=== PATIENT | female | born 1995 | race Caucasian/White ===

== ENCOUNTER 2018-01-16 01:15 | Observation (INO) | payer MEDICAID ==
[~2018-01-16] VITALS: Ht 162.6 cm; Wt 51.7 kg
[2018-01-16] MEDS ORDERED: NALBUPHINE 10 MG/ML AMP IVP PRN (01:55)
[2018-01-16] MEDS ORDERED: LACTATED RINGERS 1,000 ML IV SCH (01:55)
[2018-01-16] MEDS ORDERED: NALBUPHINE HYDROCHLORIDE 10 MG/ML VIAL ONE (02:21)
[2018-01-16 06:33] VITALS: BP 114/67
== END 2018-01-16 08:15 | disposition home or self-care (01) ==
LOC: MLD 01:15 → UNDODISOB 18:02
PROVIDERS: ADMIT Obstetrics & Gynecology; ATTEND Obstetrics & Gynecology
DX: O62.9 Abnormality of forces of labor, unspecified (principal); Z3A.28 28 weeks gestation of pregnancy
CPT/HCPCS: 36415; 76805; 96361; 96374; G0378; J2300; J7120; Q0092

== ENCOUNTER 2018-01-16 09:15 | Observation (INO) | payer MEDICAID | END 2018-01-16 10:47 | disposition home or self-care (01) | LOC: MLD 09:15 → UNDODISOB 18:00 | PROVIDERS: ADMIT Obstetrics & Gynecology; ATTEND Obstetrics & Gynecology | DX: O62.9 Abnormality of forces of labor, unspecified (principal); Z3A.00 Weeks of gestation of pregnancy not specified | CPT/HCPCS: 59025; G0378; J7120 ==

== ENCOUNTER 2019-06-02 23:50 | Emergency (ER) | payer MEDICAID ==
[~2019-06-02] VITALS: Ht 162.6 cm; Wt 44.5 kg
[2019-06-03 00:02] VITALS: BP 109/60
--- NOTE | 2019-06-03 00:02 | NUR ---
TO BED # 09 AMBULATORY
--- NOTE | 2019-06-03 00:10 | NUR ---
23 Y/O FEMALE PRESENTS TO ED, C/O VAGINAL BLEEDING. PT STATES, BLEEDING OCCURED YESTERDAY AROUND 1999, BRIGHT RED BLOOD, INTERMITTENT. PT IS 7 WEEKS , HAD ULTRASOUND LAST TUESDAY. PER REPORT GIVEN TO PT, FETUS IS HEALTHY AND NO ABNORMALITIES NOTED. PT DOES NOT HAVE ANY ABDOMINAL PAIN/CRAMPING. ABDOMEN IS SOFT TO TOUCH, ACTIVE BOWEL SOUNDS ON ALL QUADRANTS. PT HAS NO MEDICAL HX. PT VSS. DR FUNK AWARE. WILL CONTINUE TO MONITOR.
--- NOTE | 2019-06-03 00:13 | NUR ---
Dr. Lane examining patient.
[2019-06-03 00:55] LABS: BASOPHILS # (AUTO) 0.1 K/uL (0.00-0.22); BASOPHILS % (AUTO) 0.8 % (0.0-2.0); EOSINOPHILS # (AUTO) 0.1 K/uL (0-0.4); EOSINOPHILS % (AUTO) 1.4 % (0.0-4.0); HEMATOCRIT 34.3 % (36-48); LYMPHOCYTES # (AUTO) 1.9 K/uL (2.5-16.5); MEAN CORPUSCULAR HEMOGLOBIN 25 pg (27-31); MEAN CORPUSCULAR HGB CONC 32 g/dL (33-37); MONOCYTES # (AUTO) 0.5 K/uL (0.8-1.0); MONOCYTES % (AUTO) 6.5 % (1.7-9.3); NEUTROPHILS # (AUTO) 4.7 K/uL (1.8-7.7); NEUTROPHILS % (AUTO) 65.3 % (42.2-75.2); PLATELET COUNT (AUTO) 208 K/uL (140-450); RED BLOOD CELL COUNT(AUTO) 4.35 MIL/uL (4.20-5.40); RED CELL DISTRIBUTION WIDTH 17.9 % (11.6-13.7); WHITE BLOOD COUNT (AUTO) 7.2 K/uL (4.8-10.8)
--- NOTE | 2019-06-03 00:58 | NUR ---
Ultrasound at bedside.
[2019-06-03 01:08] LABS: APPEARANCE,URINE CLEAR (CLEAR); BILIRUBIN,URINE NEGATIVE (NEGATIVE); BLOOD, URINE NEGATIVE (NEGATIVE); COLOR,URINE YELLOW (YELLOW); LEUKOCYTE ESTERASE ,URINE NEGATIVE (NEGATIVE); NITRITE, URINE NEGATIVE (NEGATIVE); UGLUCOSE NEGATIVE (NEGATIVE)
[2019-06-03 01:17] LABS: ALBUMIN 3.4 g/dL (3.4-5.0); ANION GAP 13.7 (8-16); CARBON DIOXIDE 27.8 mmol/L (21-32); CREATININE 0.6 mg/dL (0.6-1.3); POTASSIUM 3.5 mmol/L (3.5-5.1); TOTAL BILIRUBIN 0.2 mg/dL (0.0-1.0)
--- NOTE | 2019-06-03 01:20 | NUR ---
PT AWAKE, LAYING ON BED. BOYFRIEND AT BEDSIDE. PT STATES SHE DOES NOT HAVE ANY VAGINAL BLEEDING. PT VSS. DR FUNK AWARE. WILL CONTINUE TO MONITOR.
[2019-06-03 01:24] LABS: RBC,URINE 0-5 /HPF (0-5); WBC,URINE 0-5 /HPF (0-5)
[2019-06-03 02:40] VITALS: BP 119/67
--- NOTE | 2019-06-03 02:40 | NUR ---
PT DISCHARGE WITH PAPERWORK. EDUCATED PT REGARDING DISCHARGE DIAGNOSIS. PT VSS. NO VAGINAL BLEEDING. TOLD PT TO FOLLOW UP WITH GENERAL HELPER/PCP AND WHEN TO RETURN TO ED. ALL QUESTIONS ANSWERED.
== END 2019-06-03 02:40 | disposition home or self-care (01) ==
LOC: MED 23:50
DX: O20.0 Threatened abortion (principal); Z3A.01 Less than 8 weeks gestation of pregnancy
CPT/HCPCS: 36415; 76801; 80053; 81001; 81025; 84702; 85025; 86900; 86901; 99284; Q0092